=== PATIENT | male | born 1995 | race African-American/Black ===

== ENCOUNTER 2018-12-10 09:01 | Emergency (ER) | payer MEDICAID, OTHER ==
[~2018-12-10] VITALS: Ht 172.7 cm; Wt 59.0 kg
[2018-12-10 09:05] VITALS: BP 129/89
--- NOTE | 2018-12-10 09:08 | NUR ---
Patient ambulated to bed 12 with friend
[2018-12-10] MEDS ORDERED: INSULIN REGULAR, HUMAN 100 UNIT/ML VIAL SUBQ ONE ×2 (09:20→11:00)
[2018-12-10] MEDS ORDERED: NACL 0.9% 1,000 ML IV ONE ×3 (09:20→11:00)
[2018-12-10] MEDS ORDERED: ONDANSETRON 4 MG/2 ML VIAL IVP ONE ×2 (09:20→11:00)
[2018-12-10] MEDS ORDERED: METOCLOPRAMIDE 10 MG/2 ML INJ VIAL IVP ONE (09:40)
--- NOTE | 2018-12-10 09:45 | NUR ---
IV established to left AC 20 gauge, labs drawn and sent to lab, IV flushed with 10cc of NS. Pt tolerated well.
--- NOTE | 2018-12-10 09:56 | NUR ---
LABS AND URINE SAMPLE WALKED OVER TO LAB
--- NOTE | 2018-12-10 09:56 | NUR ---
IDDM C/O REPEATED N/V , FEELING HUNG OVER AFTER BINGE DRINKING LAST NIGHT HEADACHE, MALAISE--- BS [id number]--
[2018-12-10 10:43] LABS: ALBUMIN 4.4 g/dL (3.4-5.0); CARBON DIOXIDE 16.6 mmol/L (21-32); CREATININE 0.9 mg/dL (0.7-1.3); POTASSIUM 4.6 mmol/L (3.5-5.1); TOTAL BILIRUBIN 0.6 mg/dL (0.0-1.0)
[2018-12-10 10:51] LABS: HEMATOCRIT 46.4 % (36-52); HEMOGLOBIN 14.8 g/dL (12.0-18.0); MEAN CORPUSCULAR HEMOGLOBIN 26 pg (27-31); MEAN CORPUSCULAR HGB CONC 32 g/dL (33-37); MEAN CORPUSCULAR VOLUME 81.3 fL (80-94); PLATELET COUNT (AUTO) 272 K/uL (140-450); RED BLOOD CELL COUNT(AUTO) 5.71 MIL/uL (4.20-6.10); RED CELL DISTRIBUTION WIDTH 14.3 % (11.6-13.7); WHITE BLOOD COUNT (AUTO) 11.4 K/uL (4.8-10.8)
[2018-12-10] MEDS ORDERED: POTASSIUM CHLORIDE 10 MEQ TABER PO ONE (11:00)
--- NOTE | 2018-12-10 13:13 | NUR ---
Patient discharged with v/s stable. Written and verbal after care instructions given and explained. Patient verbalized understanding. Ambulatory with steady gait. All questions addressed prior to discharge. Advised to follow up with PMD.
[2018-12-10 13:15] VITALS: BP 106/67
[2018-12-10 13:22] LABS: LYMPHOCYTES % (MANUAL) 20 % (20-46); MONOCYTES % (MANUAL) 5 % (5-12)
--- NOTE | 2018-12-12 06:21 | NUR ---
Late entry. Confirmed with nurse that 1000ml 0.9 NS IV ended at 1145 the other 1000ml ended at 1220.
== END 2018-12-10 13:13 | disposition home or self-care (01) ==
LOC: MED 09:01
DX: E10.65 Type 1 diabetes mellitus with hyperglycemia (principal); F10.129 Alcohol abuse with intoxication, unspecified; R11.2 Nausea with vomiting, unspecified
CPT/HCPCS: 36415; 80053; 82948; 85025; 96361; 96372; 96374; 96375; 96376; 99283; G0482; J1815; J2405; J2765; J7030